=== PATIENT | female | born 1985 | race American Indian/Alaskan Native ===

== ENCOUNTER 2022-02-26 07:34 | Emergency (ER) | payer BC ==
[2022-02-26 07:51] VITALS: BP 149/89
[2022-02-26 09:10] LABS: Basophils % (Auto) 0.2 % (0.0-1.8); Eosinophils % (Auto) 0.2 % (0.0-4.3); Hematocrit 36.8 % (30.3-42.9); Hemoglobin 11.9 gm/dl (10.1-14.3); Lymphocytes # (Auto) 2.6 K/mm3 (1.2-5.4); Lymphocytes % (Auto) 34.3 % (13.4-35.0); Mean Corpuscular HGB Conc 33 % (30-34); Mean Corpuscular Volume 94 fl (79-97); Monocytes # (Auto) 0.6 K/mm3 (0.0-0.8); Monocytes % (Auto) 7.5 % (0.0-7.3); Platelet Count 315 K/mm3 (140-440); Red Blood Count 3.93 M/mm3 (3.65-5.03); Red Cell Distribution Width 13.4 % (13.2-15.2)
[2022-02-26 09:25] LABS: INR 0.87 (0.87-1.13)
[2022-02-26 09:26] LABS: Partial Thromboplastin Time 28.1 Sec. (24.2-36.6)
[2022-02-26 09:40] LABS: Bacteria,Urine 3+ /HPF (Negative); Bilirubin,Urine NEG (Negative); Blood,Urine LG (Negative); Color,Urine Yellow (Yellow); Mucus,Urine FEW /HPF; Urobilinogen,Urine < 2.0 mg/dL (<2.0)
--- NOTE | 2022-02-26 09:41 | Emergency Department Report ---
ED HPI - General Chief complaint: Vaginal Bleeding Stated complaint: MISCARRIAGE 6 WKS Time Seen by Provider: 02/26/22 08:27 Source: patient Mode of arrival: Ambulatory Limitations: No Limitations - History of Present Illness Initial comments: This is a 36-year-old female nontoxic, well nourished in appearance, no acute signs of distress presents to the ED with c/o of vaginal bleeding x1 day. Patient stated she is currently about 6 weeks . Patient stated she goes about 2 pads in the last 24 hours. Patient denies any abdominal or pelvic pain. Patient denies any vaginal discharge or foul odor. Patient denies any nausea, vomiting, chest pain, shortness of breathe, fever, chills, headache, stiff neck, numbness, tingling. Patient denies any urinary symptoms. Patient denies any allergies or PMH. MD Complaint: vaginal bleeding -: days(s) Severity scale (0 -10): 0 Improves with: none Worsens with: none Associated symptoms: vaginal bleeding. denies: nausea/vomiting, vaginal discharge, abdominal pain, dysuria, headache, vision changes, malaise, dysparuenia, rash, seizure, shortness of breath, syncope, weakness Vaginal bleeding: light :: Yes - Related Data Previous Rx's Medication Instructions Recorded Last Taken Type cephALEXin [Keflex] 500 mg PO Q8HR #21 cap 02/26/22 Unknown Rx Allergies Allergy/AdvReac Type Severity Reaction Status Date / Time No Known Allergies Allergy Unverified 02/26/22 07:48 ED Review of Systems ROS: Stated complaint: MISCARRIAGE 6 WKS Other details as noted in HPI Comment: All other systems reviewed and negative Constitutional: denies: chills, fever Eyes: denies: eye pain, eye discharge, vision change ENT: denies: ear pain, throat pain Respiratory: denies: cough, shortness of breath, wheezing Cardiovascular: denies: chest pain, palpitations Endocrine: no symptoms reported Gastrointestinal: denies: abdominal pain, nausea, diarrhea Genitourinary: abnormal menses. denies: urgency, dysuria, discharge Musculoskeletal: denies: back pain, joint swelling, arthralgia Skin: denies: rash, lesions Neurological: denies: headache, weakness, paresthesias Psychiatric: denies: anxiety, depression Hematological/Lymphatic: denies: easy bleeding, easy bruising ED Past Medical Hx - Past Medical History Previous Medical History?: No - Surgical History Past Surgical History?: No - Medications Home Medications: Home Medications Medication Instructions Recorded Confirmed Last Taken Type cephALEXin [Keflex] 500 mg PO Q8HR #21 cap 02/26/22 Unknown Rx ED Physical Exam - General Limitations: No Limitations General appearance: alert, in no apparent distress - Head Head exam: Present: atraumatic, normocephalic - Eye Eye exam: Present: normal appearance - Neck Neck exam: Present: normal inspection, full ROM. Absent: lymphadenopathy - Respiratory Respiratory exam: Absent: respiratory distress - Cardiovascular Cardiovascular Exam: Present: regular rate - GI/Abdominal GI/Abdominal exam: Present: soft, normal bowel sounds. Absent: distended, tenderness, guarding, rebound, rigid, diminished bowel sounds - Extremities Exam Extremities exam: Present: normal inspection, full ROM, normal capillary refill. Absent: tenderness - Back Exam Back exam: Present: normal inspection, full ROM. Absent: tenderness, CVA tenderness (R), CVA tenderness (L), muscle spasm, paraspinal tenderness, vertebral tenderness, rash noted - Neurological Exam Neurological exam: Present: alert, oriented X3, normal gait - Psychiatric Psychiatric exam: Present: normal affect, normal mood - Skin Skin exam: Present: warm, dry, intact, normal color. Absent: rash ED Course Vital Signs 02/26/22 07:48 Temperature 98 F Pulse Rate 88 Respiratory 16 Rate Blood Pressure 149/89 [Left] O2 Sat by Pulse 96 Oximetry - Reevaluation(s) Reevaluation #1: 02/26/22 09:40 Patient is speaking in full sentences with no signs of distress noted. ED Medical Decision Making - Lab Data Result diagrams: 02/26/22 08:36 02/26/22 08:36 Lab Results 02/26/22 02/26/22 02/26/22 Range/Units 08:36 08:36 08:36 WBC 7.5 (4.5-11.0) K/mm3 RBC 3.93 (3.65-5.03) M/mm3 Hgb 11.9 (10.1-14.3) gm/dl Hct 36.8 (30.3-42.9) % MCV 94 (79-97) fl MCH 30 (28-32) pg MCHC 33 (30-34) % RDW 13.4 (13.2-15.2) % Plt Count 315 (140-440) K/mm3 Lymph % (Auto) 34.3 (13.4-35.0) % [place] % (Auto) 7.5 H (0.0-7.3) % Eos % (Auto) 0.2 (0.0-4.3) % Baso % (Auto) 0.2 (0.0-1.8) % Lymph # (Auto) 2.6 (1.2-5.4) K/mm3 [place] # (Auto) 0.6 (0.0-0.8) K/mm3 Eos # (Auto) 0.0 (0.0-0.4) K/mm3 Baso # (Auto) 0.0 (0.0-0.1) K/mm3 Seg Neutrophils % 57.8 (40.0-70.0) % Seg Neutrophils # 4.4 (1.8-7.7) K/mm3 PT (12.2-14.9) Sec. INR (0.87-1.13) APTT (24.2-36.6) Sec. Sodium 138 (137-145) mmol/L Potassium 3.8 (3.6-5.0) mmol/L Chloride 102.6 (98-107) mmol/L Carbon Dioxide 26 (22-30) mmol/L Anion Gap 13 mmol/L BUN 14 (7-17) mg/dL Creatinine 0.7 (0.6-1.2) mg/dL Estimated GFR > 60 ml/min BUN/Creatinine Ratio 20 % Glucose 79 (65-100) mg/dL Calcium 9.1 (8.4-10.2) mg/dL HCG, Quant 26.42 H (0-4) mIU/mL Urine Color (Yellow) Urine Turbidity (Clear) Urine pH (5.0-7.0) Ur Specific [place] (1.003-1.030) Urine Protein (Negative) mg/dL Urine Glucose (UA) (Negative) mg/dL Urine Ketones (Negative) mg/dL Urine Blood (Negative) Urine Nitrite (Negative) Urine Bilirubin (Negative) Urine Urobilinogen (<2.0) mg/dL Ur Leukocyte Esterase (Negative) Urine WBC (Auto) (0.0-6.0) /HPF Urine RBC (Auto) (0.0-6.0) /HPF U Epithel Cells (Auto) (0-13.0) /HPF Urine Bacteria (Auto) (Negative) /HPF Urine Mucus /HPF Blood Type 02/26/22 02/26/22 02/26/22 Range/Units 08:36 08:36 08:50 WBC (4.5-11.0) K/mm3 RBC (3.65-5.03) M/mm3 Hgb (10.1-14.3) gm/dl Hct (30.3-42.9) % MCV (79-97) fl MCH (28-32) pg MCHC (30-34) % RDW (13.2-15.2) % Plt Count (140-440) K/mm3 Lymph % (Auto) (13.4-35.0) % [place] % (Auto) (0.0-7.3) % Eos % (Auto) (0.0-4.3) % Baso % (Auto) (0.0-1.8) % Lymph # (Auto) (1.2-5.4) K/mm3 [place] # (Auto) (0.0-0.8) K/mm3 Eos # (Auto) (0.0-0.4) K/mm3 Baso # (Auto) (0.0-0.1) K/mm3 Seg Neutrophils % (40.0-70.0) % Seg Neutrophils # (1.8-7.7) K/mm3 PT 12.8 (12.2-14.9) Sec. INR 0.87 (0.87-1.13) APTT 28.1 (24.2-36.6) Sec. Sodium (137-145) mmol/L Potassium (3.6-5.0) mmol/L Chloride (98-107) mmol/L Carbon Dioxide (22-30) mmol/L Anion Gap mmol/L BUN (7-17) mg/dL Creatinine (0.6-1.2) mg/dL Estimated GFR ml/min BUN/Creatinine Ratio % Glucose (65-100) mg/dL Calcium (8.4-10.2) mg/dL HCG, Quant (0-4) mIU/mL Urine Color Yellow (Yellow) Urine Turbidity Slightly-cloudy (Clear) Urine pH 6.0 (5.0-7.0) Ur Specific [place] 1.024 (1.003-1.030) Urine Protein 100 mg/dl (Negative) mg/dL Urine Glucose (UA) Neg (Negative) mg/dL Urine Ketones Neg (Negative) mg/dL Urine Blood Lg (Negative) Urine Nitrite Neg (Negative) Urine Bilirubin Neg (Negative) Urine Urobilinogen < 2.0 (<2.0) mg/dL Ur Leukocyte Esterase Mod (Negative) Urine WBC (Auto) 20.0 H (0.0-6.0) /HPF Urine RBC (Auto) > 182.0 (0.0-6.0) /HPF U Epithel Cells (Auto) 55.0 H (0-13.0) /HPF Urine Bacteria (Auto) 3+ (Negative) /HPF Urine Mucus Few /HPF Blood Type B POSITIVE - Radiology Data [facility] [address] [place] [address] Ultrasound Report Signed Patient: MARCOS WILSON MR# : [id number] : 1985 Acct:[id number] Age/Sex: 36 / F ADM Date: 02/26/22 Loc: ED Attending Dr: Ordering Physician: KIMI IRELAND NP Date of Service: 02/26/22 Procedure(s): US OB <= 14 weeks fetus Accession Number(s): [id number] cc: KIMI IRELAND NP OB Ultrasound HISTORY: vaginal bleeding. TECHNIQUE: Grayscale and color imaging performed. COMPARISON: None FINDINGS: Uterus measures 11.9 x 8.9 x 7.7 cm with endometrial echocomplex measuring 1.7 cm. Uterus is diffusely heterogeneous with several soft tissue masses likely reflecting fibroid disease. The largest of these fibroids measures approximately 3.6 cm in maximal dimension in the body. No intrauterine gestational sac identified. Right ovary measures 3.5 x 2.2 x 1.9 cm and contains follicles as well as a slightly complicated cystic structure measuring 1.5 cm in maximal dimension. There is also a peripheral blood flow in this finding. No pole or yolk sac demonstrated. Left ovary measures 2.8 x 1.2 x 2.5 cm and contains follicles. No appreciable pelvic free fluid identified. IMPRESSION: 1. No intrauterine gestation identified. 2. Complex cystic structure in the right ovary. I do not see a yolk sac or pole but correlate with beta hCG level and consider close sonographic follow-up to ensure resolution. Signer Name: Raul Lozano MD Signed: 02/26/2022 12:12 PM Workstation Name: [id number] Transcribed By: ARLIN Dictated By: Raul Lozano MD Electronically Authenticated By: Raul Lozano MD Signed Date/Time: 02/26/22 1212 DD/ 1207 TD/TT: [facility] [address] [place] [address] Ultrasound Report Signed Patient: MARCOS WILSON MR# : [id number] : 1985 Acct:[id number] Age/Sex: 36 / F ADM Date: 02/26/22 Loc: ED Attending Dr: Ordering Physician: KIMI IRELAND NP Date of Service: 02/26/22 Procedure(s): US OB <= 14 weeks fetus Accession Number(s): [id number] cc: KIMI IRELAND NP OB Ultrasound HISTORY: vaginal bleeding. TECHNIQUE: Grayscale and color imaging performed. COMPARISON: None FINDINGS: Uterus measures 11.9 x 8.9 x 7.7 cm with endometrial echocomplex measuring 1.7 cm. Uterus is diffusely heterogeneous with several soft tissue masses likely reflecting fibroid disease. The largest of these fibroids measures approximately 3.6 cm in maximal dimension in the body. No intrauterine gestational sac identified. Right ovary measures 3.5 x 2.2 x 1.9 cm and contains follicles as well as a slightly complicated cystic structure measuring 1.5 cm in maximal dimension. There is also a peripheral blood flow in this finding. No pole or yolk sac demonstrated. Left ovary measures 2.8 x 1.2 x 2.5 cm and contains follicles. No appreciable pelvic free fluid identified. IMPRESSION: 1. No intrauterine gestation identified. 2. Complex cystic structure in the right ovary. I do not see a yolk sac or pole but correlate with beta hCG level and consider close sonographic follow-up to ensure resolution. Signer Name: Raul Lozano MD Signed: 02/26/2022 12:12 PM Workstation Name: [id number] Transcribed By: ARLIN Dictated By: Raul Lozano MD Electronically Authenticated By: Raul Lozano MD Signed Date/Time: 02/26/22 1212 DD/ 1207 TD/TT: - Medical Decision Making This is a 36-year-old female presents with threatened miscarriage and UTI. Patient is stable and was examined by me. Normal abdominal exam. US OB obtained and dictated by the radiologist. Ua obtained. Quantative serum test obtained. Patient notified of the US report with no questions noted by the patient. Patient was instructed f/u with [facility] in 2 days. RH factor positive. Labs within normal limits. Patient was given strict precautions and education on ectopic . At time of discharge, the patient does not seem toxic or ill in appearance. No acute signs of distress noted. Patient agrees to discharge treatment plan of care. No further questions noted by the patient. Critical care attestation.: If time is entered above; I have spent that time in minutes in the direct care of this critically ill patient, excluding procedure time. ED Disposition Clinical Impression: Threatened miscarriage UTI (urinary tract infection) Qualifiers: Urinary tract infection type: acute cystitis Hematuria presence: without hematuria Qualified Code(s): N30.00 - Acute cystitis without hematuria Disposition: HOME / SELF CARE / HOMELESS Is pt being admited?: No Does the pt Need Aspirin: No Condition: Stable Instructions: Threatened Miscarriage, Urinary Tract Infection, Adult Additional Instructions: Follow-up with a [facility] doctor in 2 days or if symptoms worsen and continue return to emergency room as soon as possible. Prescriptions: cephALEXin [Keflex] 500 mg PO Q8HR #21 cap Referrals: [facility] [Primary Care Provider] - 3-5 Days [facility] - 02/28/22 [facility] [Provider Group] - 02/28/22 Time of Disposition: 12:41
[2022-02-26 09:45] LABS: Blood Urea Nitrogen 14 mg/dL (7-17); Calcium 9.1 mg/dL (8.4-10.2); Hemolysis Index 2
[2022-02-26 09:46] LABS: BUN/Creatinine Ratio 20
[2022-02-26 09:57] LABS: RBC,Urine > 182.0 /HPF (0.0-6.0)
--- NOTE | 2022-02-26 12:16 | Ultrasound Report ---
OB Ultrasound HISTORY: vaginal bleeding. TECHNIQUE: Grayscale and color imaging performed. COMPARISON: None FINDINGS: Uterus measures 11.9 x 8.9 x 7.7 cm with endometrial echocomplex measuring 1.7 cm. Uterus i s diffusely heterogeneous with several soft tissue masses likely reflecting fibroid disease. The larg est of these fibroids measures approximately 3.6 cm in maximal dimension in the body. No intrauterine gestational sac identified. Right ovary measures 3.5 x 2.2 x 1.9 cm and contains follicles as well as a slightly complicated cyst ic structure measuring 1.5 cm in maximal dimension. There is also a peripheral blood flow in this fin ding. No pole or yolk sac demonstrated. Left ovary measures 2.8 x 1.2 x 2.5 cm and contains follicles. No appreciable pelvic free fluid identified. IMPRESSION: 1. No intrauterine gestation identified. 2. Complex cystic structure in the right ovary. I do not see a yolk sac or pole but correlate w ith beta hCG level and consider close sonographic follow-up to ensure resolution. Signer Name: Raul Lozano MD Signed: 02/26/2022 12:12 PM Workstation Name: [id number]
== END 2022-02-26 13:01 | disposition home or self-care (01) ==
LOC: ED 07:34
DX: O20.0 Threatened abortion (principal); Z3A.01 Less than 8 weeks gestation of pregnancy; N39.0 Urinary tract infection, site not specified
CPT/HCPCS: 36415; 76801; 76817; 80048; 81001; 84702; 85025; 85610; 85730; 86900; 86901; 87086; 99284

== ENCOUNTER 2022-04-24 11:13 | Emergency (ER) | payer BC, OTHER ==
[2022-04-24 11:37] VITALS: BP 150/73
== END 2022-04-24 13:35 | disposition left against medical advice (07) ==
LOC: ED 11:13
DX: T14.8XXA Other injury of unspecified body region, initial encounter (principal); Z53.21 Procedure and treatment not carried out due to patient leaving prior to being seen by health care provider; W57.XXXA Bitten or stung by nonvenomous insect and other nonvenomous arthropods, initial encounter; Y93.89 Activity, other specified; Y92.89 Other specified places as the place of occurrence of the external cause; Y99.8 Other external cause status